=== PATIENT | female | born 1945 | race African-American/Black ===

== ENCOUNTER → 2016-09-22 | Outpatient (CLI) | payer MEDICARE, OTHER ==
[2016-01-25 10:18] VITALS: BP 128/72
[~2016-09-22] MED LIST: HYDR12.58 PO; MAGN400T3 PO; NIFE60TA10 PO; PRAV20TA2 PO
--- NOTE | 2016-09-22 14:29 | RAD ---
Abdominal ultrasound, 09/22/2016: History: Abdominal pain The gallbladder is surgically absent. The liver demonstrates slightly increased echogenicity in a diffuse pattern suggesting fatty change. No hepatic mass is identified. No bile duct dilatation is seen. The pancreas was obscured by overlying bowel. The visualized portions of the abdominal aorta and inferior vena cava are unremarkable. The spleen is of normal size. No renal abnormality is detected. No free fluid is evident in the abdomen. IMPRESSION: 1. Status post cholecystectomy. 2. Increased hepatic echogenicity suggesting fatty change. 3. No acute abdominal abnormality is detected.
== END | disposition home or self-care (01) ==
LOC: US 06:16
PROVIDERS: ATTEND Family Medicine
DX: R10.9 Unspecified abdominal pain (principal); Z90.49 Acquired absence of other specified parts of digestive tract
CPT/HCPCS: 76700

== ENCOUNTER → 2016-12-29 | Outpatient (CLI) | payer OTHER, MEDICARE ==
[2016-01-25 10:18] VITALS: BP 128/72
--- NOTE | 2016-12-29 15:53 | KCIC ---
EXAM: Left lower extremity venous Doppler sonogram. HISTORY: Pain. TECHNIQUE: Tripathi scale and color Doppler sonographic evaluation of the left lower extremity veins with spectral waveform analysis was performed. FINDINGS: There is normal color flow, normal compressibility and there are normal spectral waveforms in the left lower extremity veins. There is a prominent left inguinal lymph node measuring 2.8 x 2.5 x 0.4 cm. This maintains a benign fatty hilum. IMPRESSION: No Doppler evidence of lower extremity deep venous thrombosis. Electronically signed by: Nuzhat Garcia MD (12/29/2016 3:51 PM) [place] [id number]
== END | disposition home or self-care (01) ==
LOC: KCIC US 14:39
PROVIDERS: ATTEND Family Medicine
DX: M79.652 Pain in left thigh (principal)
CPT/HCPCS: 93971

== ENCOUNTER 2021-02-21 09:42 | Emergency (ER) | payer OTHER, MEDICARE ==
[2016-01-25 10:18] VITALS: BP 128/72
[~2021-02-21 09:42] MED LIST changes: -MAGN400T3 PO; +MAGN400T48 PO; -NIFE60TA10 PO; +NIFE60TA14 PO
[2021-02-22] MEDS ORDERED: CEPH500C PO (13:32)
== END 2021-02-21 10:49 | disposition left against medical advice (07) ==
LOC: ER 09:42
DX: R10.2 Pelvic and perineal pain (principal); Z53.21 Procedure and treatment not carried out due to patient leaving prior to being seen by health care provider

== ENCOUNTER 2021-02-22 10:49 | Emergency (ER) | payer MEDICARE, OTHER ==
[~2021-02-22] VITALS: Ht 152.4 cm; Wt 82.5 kg
[2021-02-22] MEDS ORDERED: IV NORMAL SALINE 1000ML BAG 1,000 ML IV ONE (11:15)
[2021-02-22] MEDS ORDERED: IBUPROFEN 200 MG TABLET. PO ONE (11:15)
--- NOTE | 2021-02-22 11:18 | PHYS DOC ---
Past Medical History Past Medical History: Diabetes-Type II, Hypertension, Other Additional Past Medical Histor: IRREGULAR HEART RATE (NIRMALA KIMBLE APRN) Past Surgical History: Hysterectomy, Other Additional Past Surgical Histo: DOUBLE MASTECTOMY (NIRMALA KIMBLE APRN) Smoking Status: Never Smoker Alcohol Use: None Drug Use: None (NIRMALA KIMBLE APRN) General Adult EDM: Chief Complaint: PELVIC PAIN HPI: HPI: Patient is a 75-year-old female who presents to the emergency department for suprapubic pain that started on Sunday. The pain is intermittent. She saw her PCP yesterday and was told it was likely musculoskeletal and was discharged home with tylenol prescription. Patient reports that has no helped her symptoms. Pain is worse with movement and she states when she bends over her low back hurts. Patient denies any injury/heavy lifting. She denies dysuria, urinary frequency, hematuria, urgency, vaginal bleeding, vaginal pain, vaginal discharge, nausea, vomiting. Patient is mildly tachycardic, hypertensive-she states she took her htn medications today and believes her elevated bp reading upon arrival is due to her being in the ER, she is also borderline febrile with a temperature of 99.0. (NIRMALA KIMBLE APRN) Review of Systems: Review of Systems: 14 body systems of the review of systems have been reviewed. See HPI for pertinent positive and negative responses, otherwise all other systems are negative, nonpertinent or noncontributory (NIRMALA KIMBLE APRN) Heart Score: C/O Chest Pain: N/A Risk Factors: Risk Factors: DM, Current or recent (<one month) smoker, HTN, HLP, family history of CAD, obesity. Risk Scores: Score 0 - 3: 2.5% MACE over next 6 weeks - Discharge Home Score 4 - 6: 20.3% MACE over next 6 weeks - Admit for Clinical Observation Score 7 - 10: 72.7% MACE over next 6 weeks - Early Invasive Strategies (NIRMALA KIMBLE APRN) Allergies: Allergies: Allergies Coded Allergies Type Severity Reaction Last Updated Verified No Known Drug Allergies 07/14/14 No (NIRMALA KIMBLE APRN) Physical Exam: PE: Constitutional: Well developed, well nourished, no acute distress, non-toxic appearance. [] HENT: Normocephalic, atraumatic, bilateral external ears normal, oropharynx moist, no oral exudates, nose normal. [] Eyes: PERRL, EOMI, conjunctiva normal, no discharge. [] Neck: Normal range of motion, no stridor Cardiovascular:Heart rate regular rhythm, no murmur [] Lungs & Thorax: Bilateral breath sounds clear to auscultation [] Abdomen: Bowel sounds normal, soft, no abdominal rigidity or guarding, suprapubic tenderness with palpation, no rebound tenderness, no masses, no pulsatile masses. [] Skin: Warm, dry, no erythema, no rash. [] Back: No tenderness, no CVA tenderness. [] Extremities: No tenderness, no cyanosis, no clubbing, ROM intact, no edema. [] Neurologic: Alert and oriented X 3, normal motor function, normal sensory function, no focal deficits noted. [] Psychologic: Affect normal, judgement normal, mood normal. [] (NIRMALA KIMBLE APRN) Current Patient Data: Labs: Laboratory Tests Test 02/22/21 12:11 02/22/21 12:46 White Blood Count 10.1 x10^3/uL Red Blood Count 4.55 x10^6/uL Hemoglobin 13.8 g/dL Hematocrit 41.0 % Mean Corpuscular Volume 90 fL Mean Corpuscular Hemoglobin 30 pg Mean Corpuscular Hemoglobin Concent 34 g/dL Red Cell Distribution Width 14.7 % Platelet Count 573 x10^3/uL Neutrophils (%) (Auto) 70 % Lymphocytes (%) (Auto) 24 % Monocytes (%) (Auto) 5 % Eosinophils (%) (Auto) 1 % Basophils (%) (Auto) 1 % Neutrophils # (Auto) 7.1 x10^3/uL Lymphocytes # (Auto) 2.4 x10^3/uL Monocytes # (Auto) 0.5 x10^3/uL Eosinophils # (Auto) 0.0 x10^3/uL Basophils # (Auto) 0.1 x10^3/uL Urine Collection Type Void Urine Color Yellow Urine Clarity Clear Urine pH 6.0 Urine Specific [place] 1.010 Urine Protein Negative mg/dL Urine Glucose (UA) Negative mg/dL Urine Ketones (Stick) Negative mg/dL Urine Blood Negative Urine Nitrite Negative Urine Bilirubin Negative Urine Urobilinogen Dipstick 0.2 mg/dL Urine Leukocyte Esterase Negative Urine RBC Occ /HPF Urine WBC Occ /HPF Urine Squamous Epithelial Cells Few /LPF Urine Bacteria Moderate /HPF Current Medications Medications (Trade) Dose Ordered Sig/Flavia Route PRN Reason Start Time Stop Time Status Last Admin Dose Admin Sodium Chloride 1,000 ml @ 1,000 mls/hr 1X ONCE IV 02/22/21 11:15 02/22/21 12:14 DC Ibuprofen (Motrin) 600 mg 1X ONCE PO 02/22/21 11:15 02/22/21 11:16 DC 02/22/21 12:13 (NIRMALA KIMBLE APRN) EKG: EKG: EKG performed by ER staff at 1507 shows sinus rhythm with rate of 83, QTC of 440 no STEMI read by Dr. Valiente at 1511 [] (NIRMALA KIMBLE APRN) Radiology/Procedures: Radiology/Procedures: [] (NIRMALA KIMBLE APRN) Course & Med Decision Making: Course & Med Decision Making Pertinent Labs and Imaging studies reviewed. (See chart for details) [] Patient presents to the emergency department with pelvic pain that started on Sunday, pain is worse with movement. She denies any urinary symptoms or vaginal bleeding/pain/discharge. She denies any injury or heavy lifting. Patient is tender over her suprapubic region. Patient was mildly tachycardic in the ER borderline febrile with a temperature of 99.0. Blood work ordered and IV fluids. Patients heart rate has improved and is now 87bpm. Urinalysis was obtained that showed occ wbc, moderate bacteria, no leukocytes or blood. CBC unremarkable. CMP shows hypokalemia and this was replaced in the ER. Patient reports that she takes potassium supplementation at home.. Normal magnesium. No prolonged QTC greater than 500. I discussed treating patient f or urinary tract infection versus obtaining a CT of her abdomen and pelvis. Patient is refusing any additional work-up such as CT of her abdomen and pelvis and would like to be discharged home with an antibiotic. Patient advised to increase her fluids, avoid bladder irritants and follow-up with her primary care provider. Patient advised to continue taking Tylenol and she may add ibuprofen for pain. I discussed with patient all findings and diagnostic testing as well as the need to follow-up with PCP for further evaluation and treatment or return to the ER if any new or worsening symptoms. Strict return precautions were also discussed at length. Patient voiced understanding and agreement with the plan. Patient is hemodynamically stable at the time of disposition. (NIRMALA KIMBLE APRN) Course & Med Decision Making I was the Attending physician on the above date of service of this patient. This patient was evaluated, examined, treated, and dispositioned from the emergency department by the mid-level practitioner. Although I was working at the time , no assistance was requested. Electronically signed, Brayden Thomas DO (BRAYDEN THOMAS DO) Subha Disclaimer: Subha Disclaimer: This electronic medical record was generated, in whole or in part, using a voice recognition dictation system. (NIRMALA KIMBLE APRN) Departure Departure Impression: Primary Impression: Urinary tract infection Qualified Codes: N30.00 - Acute cystitis without hematuria Disposition: HOME / SELF CARE / HOMELESS Condition: GOOD Referrals: NON,STAFF (PCP) Patient Instructions: Urinary Tract Infection Additional Instructions: You were seen in the emergency department today for suprapubic pain. You were noted to have a mild urinary tract infection. This will be treated with an antibiotic. Please start and finish the antibiotic completely. Please increase your fluids and avoid any bladder irritants like caffeine, sugary beverages or alcohol. Continue taking the Tylenol that was prescribed by your primary care provider. You can also add ibuprofen or naproxen to this. Your potassium was low in the ER, please make sure that you're taking your potassium supplementation as prescribed and eating foods rich in potassium like green leafy vegetables and bananas. Please follow-up with your primary care provider tomorrow regarding your ER visit. Please return to the emergency department if you develop worsening of your pain, chest pain, palpitations, shortness of breath, intractable nausea or vomiting, pain with urination, blood in your urine, vaginal bleeding or any new or worsening concerns. Scripts Cephalexin (KEFLEX) 500 Mg Capsule 1 CAP PO BID for 7 Days, #14 CAP 0 Refills Prov: NIRMALA KIMBLE APRN 02/22/21 NIRMALA KIMBLE APRN Feb 22, 2021 11:18 BRAYDEN THOMAS DO Feb 22, 2021 16:03
[2021-02-22 12:26] LABS: BASO # 0.1 x10^3/uL (0.0-0.2); BASO % 1 % (0-3); EOS % 1 % (0-3); HEMOGLOBIN 13.8 g/dL (12.0-15.5); LYMPH # 2.4 x10^3/uL (1.0-4.8); LYMPH % 24 % (24-48); MEAN CORPUSCULAR HEMOGLOBIN 30 pg (25-35); MEAN CORPUSCULAR HGB CONC 34 g/dL (31-37); MEAN CORPUSCULAR VOLUME 90 fL (79-100); MONO # 0.5 x10^3/uL (0.0-1.1); MONO % 5 % (0-9); NEUT # 7.1 x10^3/uL (1.8-7.7); NEUT % 70 % (31-73); PLATELET COUNT 573 x10^3/uL (140-400); RED BLOOD COUNT 4.55 x10^6/uL (3.50-5.40); RED CELL DISTRIBUTION WIDTH 14.7 % (11.5-14.5); WHITE BLOOD COUNT 10.1 x10^3/uL (4.0-11.0)
[2021-02-22 13:00] LABS: BILIRUBIN,URINE NEGATIVE (NEG); CLARITY,URINE CLEAR; COLOR,URINE YELLOW; NITRITE,URINE NEGATIVE (NEG); PROTEIN,URINE NEGATIVE (NEG-TRACE); UROBILINOGEN,URINE 0.2 mg/dL (0.2 mg/dL)
[2021-02-22 13:11] LABS: BACTERIA,URINE MODERATE /HPF (0-FEW); RBC,URINE OCC /HPF (0-2); WBC,URINE OCC /HPF (0-4)
[2021-02-22] MEDS ORDERED: CEPH500C PO (13:32)
[2021-02-22 14:27] LABS: ALBUMIN 3.3 g/dL (3.4-5.0); ALBUMIN/GLOBULIN RATIO 0.6 (1.0-1.7); CALCIUM 8.8 mg/dL (8.5-10.1); GFR 65.8; TOTAL BILIRUBIN 0.4 mg/dL (0.2-1.0); TOTAL PROTEIN 8.6 g/dL (6.4-8.2)
[2021-02-22 14:29] LABS: POTASSIUM 2.9 mmol/L (3.5-5.1)
[2021-02-22] MEDS ORDERED: POTASSIUM CHLORIDE 20 MEQ TABLET.ER. PO ONE (14:45)
[2021-02-22 14:58] VITALS: BP 133/58
--- NOTE | 2021-02-22 16:07 | EKG ---
[facility] [address] [place] [address] Test Date: 2021-02-22 Test Time: 15:07:08 Pat Name: KARLA BARAJAS Department: Room: Gender: F [employer]: : 1945 Requested By: NIRMALA KIMBLE Order Number: [id number] Reading MD: Measurements Intervals [place] Rate: 83 P: 42 NM: 130 QRS: -42 QRSD: 82 T: 42 QT: 374 QTc: 440 Interpretive Statements SINUS RHYTHM ATRIAL PREMATURE COMPLEX(ES) ABNORMAL LEFT AXIS DEVIATION LEFT ANTERIOR FASCICULAR BLOCK QRS(T) CONTOUR ABNORMALITY CONSISTENT WITH ANTEROSEPTAL INFARCT PROBABLY OLD T ABNORMALITY IN ANTERIOR LEADS ABNORMAL ECG RI6.01 No previous ECG available for comparison
== END 2021-02-22 15:45 | disposition home or self-care (01) ==
LOC: ER 10:49
DX: N30.00 Acute cystitis without hematuria (principal); E11.9 Type 2 diabetes mellitus without complications; I10 Essential (primary) hypertension; Z90.710 Acquired absence of both cervix and uterus
CPT/HCPCS: 36415; 80053; 81001; 83735; 85025; 87086; 93005; 99285-25